=== PATIENT | female | born 1960 | race Caucasian/White ===

== ENCOUNTER 2017-02-10 12:10 | Inpatient (IN) | payer MEDICARE ==
[2017-02-10] VITALS (8 sets, daily range): BP systolic 113–168; BP diastolic 61–87
[~2017-02-10] VITALS: Ht 160 cm; Wt 71.3 kg
--- NOTE | ~2017-02-10 | ST ---
[place], [place] EXERCISE STRESS TEST REPORT [id number] UN[facility] #: [id number] ROOM: 412 DOCTOR: JUAN COLEY MD BIRTHDATE: [birth year] DATE: 02/11/17 STRESS TEST REASON FOR TEST: Evaluation of chest pain. REFERRING PHYSICIAN: Charlie Barroso MD PROTOCOL: Cristi protocol. Initially Cristi protocol was attempted due to patient's submaximal heart rate. She received 0.4 mg Lexiscan. PHYSICAL EXAMINATION: NECK: Supple. LUNGS: Clear anteriorly. HEART: Regular rhythm. Total stress time 6 minutes 15 seconds. Maximum heart was 118, which is 72% of targeted heart rate. Peak blood pressure 140/76 and total mets 7.4 mets. EKG: Resting EKG showed sinus rhythm. Stress EKG showed no ischemia or arrhythmias. CONCLUSION: Clinically, the patient is chest pain free. EKG nonischemic. POST-STRESS COMPLICATIONS: None. JUAN COLEY MD CM:STRESS:EXERCISE STRESS TEST REPORT [id number] JUAN COLEY MD
--- NOTE | ~2017-02-10 | PR ---
[place], [place] PROGRESS NOTE NAME: CARMELA SOLIS UNIT #: [id number] ROOM: 412 DOCTOR: JUAN COLEY MD BIRTHDATE: [birth year] DOS: 02/11/2017 REASON FOR VISIT: Chest pain. SUBJECTIVE: The patient denies any chest pain, denies any palpitations or dizziness. No edema, no orthopnea, no palpitations. No nausea, vomiting, diarrhea, no fever and chills, no headache, no blurred vision or double vision. No neurologic symptoms. REVIEW OF SYSTEMS: Review of the 8 systems negative except as mentioned above. PHYSICAL EXAMINATION: VITAL SIGNS: Blood pressure /70, pulse 58, respiratory rate 16. GENERAL: Alert, comfortable, in no acute distress. HEENT: Pupils round, equal. No jaundice. NECK: Supple and no distended neck veins, no carotid bruit. Tongue was moist and pharynx was clear. CHEST: Symmetrical, nontender. LUNGS: Clear to auscultation bilaterally. HEART: Regular rhythm, no S3. ABDOMEN: Benign, nontender. Bowel sounds normal. EXTREMITIES: Showed no edema. Distal pulses are palpable. SKIN: Warm and dry. No cyanosis, no clubbing. NEUROLOGIC: The patient was alert, oriented. No focal neurologic deficit. RECTAL: Deferred. GENITOURINARY: Deferred. REVIEW OF DIAGNOSTIC TEST: Labs and rhythm strips reviewed. IMPRESSION: 1. Chest pain, myocardial infarction ruled out. 2. Sinus bradycardia, asymptomatic. 3. Hypertension, stable. 4. Diabetes, type 2. 5. Dyslipidemia. RECOMMENDATIONS: 1. Continue current medications. 2. Continue to watch her heart rate and blood pressures. 3. Exercise nuclear stress test today to rule out underlying ischemia. 4. If the stress test is unremarkable, she can be discharged home today. [place], [place] PROGRESS NOTE NAME: CARMELA SOLIS UNIT #: [id number] ROOM: 412 DOCTOR: JUAN COLEY MD BIRTHDATE: [birth year] JUAN COLEY MD CM:PRISCILLA [id number] JUAN COLEY MD 02/12/17 0257 interface
--- NOTE | ~2017-02-10 | WRIGHTHP ---
[place], [place] PATIENT HISTORY AND PHYSICAL EXAM NAME: CARMELA SOLIS [facility] #: [id number] UNIT #: [id number] ROOM: 412 DOCTOR: PER TRONCOSO MD BIRTHDATE: [birth year] DOS: 02/11/2017 HISTORY OF PRESENT ILLNESS: The patient is doing well. She is chest pain free now. The patient presented with complaints of back and later on chest pain radiating into her left arm, which were severe and she called an ambulance and was brought to the Emergency Department. The patient was admitted and cardiac enzymes were found to be negative. The patient was taken for cardiac stress test by the mud analysis operator and the stress test was found to be negative. The patient has been cleared for discharge to home and she is asymptomatic. Some concerns about a stroke. According to the daughter, the patient has been having occasional slurring of the speech and noticed a possible droop of the left eye which has resolved. The patient already had carotid arterial Dopplers performed as an outpatient in recent months, which did not show any critical stenosis. 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 PAST MEDICAL HISTORY: Fibromyalgia, ankylosing spondylitis, generalized anxiety disorder, chronic lower back pains, and major depression, recurrent, minor controlled with fluoxetine. REVIEW OF SYSTEMS: LUNGS: No shortness of breath or wheezing. GASTROINTESTINAL: No nausea, vomiting, diarrhea or constipation. CARDIOVASCULAR SYSTEM: No palpitation, but the patient did have chest pains prior to admission. FAMILY HISTORY: Noncontributory. SOCIAL HISTORY: , lives at home. Denies smoking cigarettes, alcohol and drug abuse. ALLERGIES: KNOWN ALLERGIES TO QUINOLONES, TRAMADOL AND LYRICA. PHYSICAL EXAMINATION: VITAL SIGNS: Blood pressure 119/66, heart rate 69 beats per minute, breathing 18 times per minute, temperature 98.3 degrees Fahrenheit. GENERAL APPEARANCE: The patient is alert and oriented x 3, in no visible distress. HEENT AND NECK: Extraocular movements are intact. Sclerae are anicteric. Oral mucosa is moist and clean. No obvious facial weakness. Neck is supple without any lymphadenopathy. No thyromegaly. No JVD. No carotid arterial bruits. LUNGS: Clear to auscultation. No wheezing. No rhonchi. CARDIOVASCULAR SYSTEM: Heart rate is regular in rate and rhythm. S1 and S2 normally audible. No significant murmur or any other abnormal cardiac sounds. ABDOMEN: Soft, nontender. No obvious organomegaly. Bowel sounds are present. No obvious herniation. EXTREMITIES: Without significant cyanosis or edema. Warm to touch. CENTRAL NERVOUS SYSTEM: Alert and oriented x 3. Cranial nerves II-XII are intact. Speech is normal. The patient is able to move all extremities. Normal muscle strength. Deep tendon reflexes are equal on both sides. Plantars were [place], [place] PATIENT HISTORY AND PHYSICAL EXAM [id number] UNIT #: [id number] ROOM: [facility] DOCTOR: PER TRONCOSO MD BIRTHDATE: [birth year] downgoing. IMPRESSION: 1. The patient with chest pains from uncertain etiology. Cardiac enzymes were negative. Cardiac stress test was negative and was normal and she will be sent to home after clearance from Cardiology today and she will follow up with me in the office next week, Wednesday. 2. Some suspicion of transient ischemic attack, but carotid arterial Dopplers performed recently was normal. I am starting on aspirin 81 mg a day, which she will continue at home. Her neurological exam was normal today. 3. The patient with ankylosing spondylitis with chronic neck and lower back pains controlled with fentanyl patch and p.r.n. Vicodin. 4. Generalized anxiety disorder, reasonably controlled. 5. Fibromyalgia and chronic pains controlled with treatment. 6. The patient to be discharged to home to follow up at the office on Wednesday. PER TRONCOSO MD CM:HISPHYS:PATIENT HISTORY AND PHYSICAL EXAMINATION 32 12 PER TRONCOSO MD 02/11/171913 interface
[~2017-02-10 12:10] MED LIST: ANAPROX DS550 MG PO; ASCRIPTIN1 TA1 PO; ASPIRIN81 M1 PO; ATIVAN0.5 MG PO; AUGMENTIN 875 M1 TAB PO; B COMPLEX PO; BACTRIM DS 8001 TA1 PO; BACTROBAN CREAM15 GM PO; BIAXIN500 MG PO; CLARITIN-D 12 H1 TAB PO; CLARITIN10 MG PO; COMPAZINE10 MG PO; DARVOCET N 1001 TAB PO; DURAGESIC 50 M50 MCG TD; DURAGESIC25 MCG/HR TD; Duragesic 25 M25 MCG TD; EFFEXOR75 MG PO; FLEXERIL10 MG PO; FLONASE ALLERG9.9 ML NAS; KEFLEX500 MG PO; LOPRESSOR25 MG PO; Lopressor25 MG PO; MACROBID100 M1 PO; NEURONTIN600 MG PO; PERCOCET 325 MG1 TA5 PO; PREDNISONE10 MG PO; PYRIDIUM200 M1 PO; PYRIDIUM200 MG PO; ROBITUSSIN AC 110 ML PO; Synthroid,Levo50 MCG PO; TORADOL10 MG PO; TRAMADOL HCL50 MG PO; VIBRAMYCIN100 MG PO; VICO75300 PO; VICODIN 5/500 505 MG PO; VICODIN 500 MG-1 TAB PO; VICODIN ES 7501 TA1 PO; VITAMIN B12500 MC1 MM; VITAMIN D2000 IU PO; VITAMIN D5000 I3 PO; ZITHROMAX250 MG PO; [UNRECOGNIZED DRUG - OTHER] IJ; [UNRECOGNIZED DRUG - OTHER] PO
[2017-02-10] MEDS ORDERED: PROZAC40 M1 PO (12:19)
[2017-02-10 12:51] LABS: BASO # 0.1 10*3/uL (0.0-0.1); BASO % 0.9 % (0.0-1.0); EOS # 0.1 10*3/uL (0.0-0.4); EOS % 1.8 % (1.0-4.0); HEMATOCRIT 39.5 % (37.0-47.0); HEMOGLOBIN 13.5 g/dl (12.0-16.0); LYMPH % 34.8 % (27.0-41.0); MEAN CELL VOLUME 84.9 fl (81.0-99.0); MEAN CORPUSCULAR HGB CONC 34.2 g/dl (33.0-37.0); MEAN PLATELET VOLUME 9.3 fl (9.6-12.3); MONO # 0.5 10*3/uL (0.1-1.0); MONO % 8.4 % (3.0-9.0); NEUT % 53.4 % (47.0-73.0); PLATELET COUNT AUTOMATED 266 10*3/uL (130-400); RED BLOOD COUNT 4.65 10*6/uL (4.10-5.10); RED CELL DISTRI WIDTH 12.2 % (0-14.5); WHITE BLOOD COUNT 5.6 10*3/uL (4.8-10.8)
[2017-02-10 12:59] LABS: PROTHROMBIN TIME 10.3 SECONDS (9.0-12.4)
[2017-02-10 13:09] LABS: ALBUMIN 3.9 gm/dl (3.1-4.5); ALKALINE PHOSPHATASE 79 U/L (45-117); BILIRUBIN, TOTAL 0.2 mg/dl (0.2-1.0); BUN 10 mg/dl (7-24); CARBON DIOXIDE 27 mmol/L (21-32); CHLORIDE 103 mmol/L (98-107); EST GLOM FILT AFRICAN AMERICAN > 60 ml/min; GLUCOSE 111 mg/dL (65-99); POTASSIUM 3.7 mmol/L (3.5-5.1); SGOT/AST 23 IU/L (3-35); SGPT/ALT 29 U/L (12-78); SODIUM 141 mmol/L (136-145); TOTAL PROTEIN 7.5 gm/dL (6.4-8.2)
[2017-02-10 13:13] LABS: TROPONIN I < 0.015 ng/ml (<0.045)
[2017-02-11] VITALS: BP 117/61
[2017-02-11 08:00] VITALS: BP 122/70
[2017-02-11 16:00] VITALS: BP 119/66
== END 2017-02-11 19:05 | disposition home or self-care (01) | DRG 206 ==
LOC: ED 12:10 → 4E 14:09 → EDHOLD 14:09 → 4E 14:23
PROVIDERS: Emergency Medicine
DX: M94.0 Chondrocostal junction syndrome [Tietze] (principal); E11.40 Type 2 diabetes mellitus with diabetic neuropathy, unspecified; E11.65 Type 2 diabetes mellitus with hyperglycemia; F41.1 Generalized anxiety disorder; G89.29 Other chronic pain; M54.5 Low back pain; F32.9 Major depressive disorder, single episode, unspecified; M79.7 Fibromyalgia; M45.9 Ankylosing spondylitis of unspecified sites in spine; Z88.1 Allergy status to other antibiotic agents; Z88.6 Allergy status to analgesic agent; Z91.018 Allergy to other foods; Z87.891 Personal history of nicotine dependence; R00.1 Bradycardia, unspecified; E78.5 Hyperlipidemia, unspecified

== ENCOUNTER 2017-04-22 16:50 | Emergency (ER) | payer MEDICARE ==
[~2017-04-22] VITALS: Ht 160 cm; Wt 70.3 kg
[~2017-04-22 16:50] MED LIST changes: +PROZAC40 M1 PO
[2017-04-22 16:57] VITALS: BP 150/70
[2017-04-22 17:32] LABS: BASO # 0.1 10*3/uL (0.0-0.1); BASO % 0.7 % (0.0-1.0); EOS # 0.2 10*3/uL (0.0-0.4); EOS % 2.1 % (1.0-4.0); HEMOGLOBIN 13.4 g/dl (12.0-16.0); LYMPH # 2.4 10*3/uL (1.3-4.4); LYMPH % 33.6 % (27.0-41.0); MEAN CELL VOLUME 86.2 fl (81.0-99.0); MEAN CORPUSCULAR HGB 28.9 pg (27.0-31.0); MEAN CORPUSCULAR HGB CONC 33.5 g/dl (33.0-37.0); MEAN PLATELET VOLUME 9.3 fl (9.6-12.3); MONO # 0.7 10*3/uL (0.1-1.0); MONO % 9.7 % (3.0-9.0); NEUT # 3.7 10*3/uL (2.3-7.9); NEUT % 53.3 % (47.0-73.0); PLATELET COUNT AUTOMATED 275 10*3/uL (130-400); RED BLOOD COUNT 4.64 10*6/uL (4.10-5.10); RED CELL DISTRI WIDTH 12.4 % (0-14.5)
[2017-04-22 17:37] LABS: BILIRUBIN NEGATIVE (NEGATIVE); BLOOD NEGATIVE (NEGATIVE); CLARITY SL CLOUDY (CLEAR); COLOR YELLOW (YELLOW); GLUCOSE NEGATIVE (NEGATIVE); KETONE NEGATIVE (NEGATIVE); LEUKO ESTERASE TRACE (NEGATIVE); NITRITE NEGATIVE (NEGATIVE); PROTEIN NEGATIVE (NEGATIVE); UROBILINOGEN 0.2 E.U./dl (0.2-1.0)
[2017-04-22 17:43] LABS: BACTERIA 2+; RBC 0-2 rbc/hpf (0-2); URINE REFLEX COMMENT YES (NO)
[2017-04-22 17:48] LABS: BUN 12 mg/dl (7-24); CARBON DIOXIDE 29 mmol/L (21-32); CHLORIDE 104 mmol/L (98-107); EST GLOM FILT AFRICAN AMERICAN > 60 ml/min; GLUCOSE 87 mg/dL (65-99); POTASSIUM 4.2 mmol/L (3.5-5.1); SODIUM 143 mmol/L (136-145); TROPONIN I < 0.015 ng/ml (<0.045)
[2017-04-22] MEDS ORDERED: BACTRIM DS 8001 TA1 PO (18:33)
== END 2017-04-22 18:34 | disposition home or self-care (01) ==
LOC: ED 16:50
PROVIDERS: Emergency Medicine
DX: R42 Dizziness and giddiness (principal); J01.90 Acute sinusitis, unspecified; N39.0 Urinary tract infection, site not specified; I10 Essential (primary) hypertension; E78.5 Hyperlipidemia, unspecified; E11.9 Type 2 diabetes mellitus without complications; Z87.891 Personal history of nicotine dependence; Z90.49 Acquired absence of other specified parts of digestive tract; Z88.1 Allergy status to other antibiotic agents; Z88.6 Allergy status to analgesic agent; Z88.8 Allergy status to other drugs, medicaments and biological substances; Z79.899 Other long term (current) drug therapy

== ENCOUNTER 2017-05-10 09:02 | Emergency (ER) | payer MEDICARE ==
[~2017-05-10] VITALS: Ht 157.4 cm; Wt 70.3 kg
[2017-05-10] MEDS ORDERED: XANAX0.25 MG PO (09:09)
[2017-05-10 09:29] LABS: BASO % 0.3 % (0.0-1.0); EOS # 0.1 10*3/uL (0.0-0.4); EOS % 1.8 % (1.0-4.0); HEMATOCRIT 40.6 % (37.0-47.0); HEMOGLOBIN 13.5 g/dl (12.0-16.0); LYMPH # 1.2 10*3/uL (1.3-4.4); LYMPH % 20.3 % (27.0-41.0); MEAN CELL VOLUME 86.8 fl (81.0-99.0); MEAN CORPUSCULAR HGB 28.8 pg (27.0-31.0); MEAN CORPUSCULAR HGB CONC 33.3 g/dl (33.0-37.0); MEAN PLATELET VOLUME 9.1 fl (9.6-12.3); MONO # 0.4 10*3/uL (0.1-1.0); MONO % 6.8 % (3.0-9.0); NEUT # 4.3 10*3/uL (2.3-7.9); NEUT % 70.3 % (47.0-73.0); PLATELET COUNT AUTOMATED 255 10*3/uL (130-400); RED BLOOD COUNT 4.68 10*6/uL (4.10-5.10); RED CELL DISTRI WIDTH 12.4 % (0-14.5); WHITE BLOOD COUNT 6.1 10*3/uL (4.8-10.8)
[2017-05-10 09:44] LABS: BILIRUBIN NEGATIVE (NEGATIVE); BLOOD NEGATIVE (NEGATIVE); CLARITY SL CLOUDY (CLEAR); COLOR YELLOW (YELLOW); GLUCOSE NEGATIVE (NEGATIVE); KETONE NEGATIVE (NEGATIVE); LEUKO ESTERASE NEGATIVE (NEGATIVE); NITRITE NEGATIVE (NEGATIVE); PH 5.5 (5.0-9.0); PROTEIN NEGATIVE (NEGATIVE); SPECIFIC GRAVITY 1.025 (1.005-1.030); UROBILINOGEN 0.2 E.U./dl (0.2-1.0)
[2017-05-10 09:48] LABS: ALBUMIN 3.9 gm/dl (3.1-4.5); ALKALINE PHOSPHATASE 64 U/L (45-117); BILIRUBIN, TOTAL 0.3 mg/dl (0.2-1.0); BUN 12 mg/dl (7-24); CARBON DIOXIDE 30 mmol/L (21-32); CHLORIDE 101 mmol/L (98-107); EST GLOM FILT AFRICAN AMERICAN > 60 ml/min; GLUCOSE 125 mg/dL (65-99); POTASSIUM 3.9 mmol/L (3.5-5.1); SGOT/AST 20 IU/L (3-35); SGPT/ALT 26 U/L (12-78); SODIUM 138 mmol/L (136-145); TOTAL PROTEIN 7.4 gm/dL (6.4-8.2)
[2017-05-10 09:59] LABS: BACTERIA TRACE
[2017-05-10 10:00] LABS: MUCOUS 1+; URINE REFLEX COMMENT NO (NO)
[2017-05-10 11:21] VITALS: BP 136/70
[2017-05-10] MEDS ORDERED: MIRALAX POWDER17 G1 PO (11:31)
== END 2017-05-10 10:38 | disposition home or self-care (01) ==
LOC: ED 09:02
PROVIDERS: Nurse Practitioner Family
DX: K59.03 Drug induced constipation (principal); I10 Essential (primary) hypertension; R10.10 Upper abdominal pain, unspecified; R11.0 Nausea; E11.40 Type 2 diabetes mellitus with diabetic neuropathy, unspecified; E78.5 Hyperlipidemia, unspecified; Z88.1 Allergy status to other antibiotic agents; Z88.6 Allergy status to analgesic agent; Z88.8 Allergy status to other drugs, medicaments and biological substances; Z91.018 Allergy to other foods; Z79.899 Other long term (current) drug therapy; Z87.891 Personal history of nicotine dependence

== ENCOUNTER → 2017-11-15 | Outpatient (CLI) | payer MEDICARE, MEDICAID ==
[~2017-11-15] MED LIST changes: +FLAGYL500 MG PO; +MIRALAX POWDER17 G1 PO; +XANAX0.25 MG PO
== END | disposition home or self-care (01) ==
LOC: MRI 08:58
DX: M54.9 Dorsalgia, unspecified (principal)

== ENCOUNTER → 2018-01-26 | Day surgery (SDC) | payer MEDICARE, MEDICAID ==
[~2018-01-26] VITALS: Ht 157.4 cm; Wt 76.2 kg
[~2018-01-26] MED LIST changes: +OMEPRAZOLE D/R20 MG PO
--- NOTE | ~2018-01-26 | O ---
[place], [place] OPERATIVE NOTE NAME: CARMELA SOLIS [facility] #: [id number] UNIT #: [id number] ROOM: DOCTOR: CARYN PAT MD BIRTHDATE: [birth year] DOS: 01/26/2018 GASTROENDOSCOPIC REPORT INDICATIONS: This is a 57-year-old patient who has presented with dyspepsia, undergoing investigation. PROCEDURE: Today's procedure part of investigation is panendoscopy plus biopsy. PREMEDICATION: Versed and Diprivan. SCOPE: Olympus forward-viewing gastroscope Q10 video. REPORT: After putting the patient in left lateral position and application of lubricant to the scope, the scope was introduced. Thereafter, under direct visualization, advanced through the length of esophagus without difficulty. Small hiatal hernia of 2 cm was noticed. Gastric pouch was entered. Bile reflux gastritis was seen. Duodenal bulb, second and third part within normal limits. Antral biopsy obtained for H. pylori. The patient extubated, tolerated the procedure well. IMPRESSION: Hiatal hernia, bile reflux, gastritis. PLAN: Omeprazole 20 mg 1 every day, antireflux, elevation of the head of the bed 6 inch all time. Follow up routinely with you in office, p.r.n. visit with us in GI Clinic. CARYN PAT MD CM:OPRECORD:OPERATIVE NOTE [id number] PER PAT MD 01/26/18 0950 interface
--- NOTE | ~2018-01-26 | O ---
[place], [place] OPERATIVE NOTE NAME: CARMELA SOLIS UNIT #: [id number] ROOM: DOCTOR: CARYN PAT MD BIRTHDATE: [birth year] DOS: 01/26/2018 GASTROENDOSCOPIC REPORT HISTORY OF PRESENT ILLNESS: A 57-year-old patient who presented with chief complaint of dyspepsia and concern about colonic screening, undergoing investigation. PAST MEDICAL HISTORY: Associated with history of degenerative joint disease, spinal stenosis, diabetes, peripheral neuropathy. PAST SURGICAL HISTORY: Cholecystectomy, appendectomy, tubal ligation, dental work. ALLERGIES: CIPROFLOXACIN AND PREDNISONE AND ALLERGIES TO MULTIPLE FOODS INCLUDING TOMATOES AND CHERRIES. SOCIAL HISTORY: Stopped smoking 15 years ago. Alcohol consumption rarely. PROCEDURE: Today's procedure part of investigation is colonoscopy, panendoscopy. PREMEDICATION: Versed and Diprivan. SCOPE: Olympus folding colonoscope 10L video. REPORT: After putting the patient in left lateral position and application of lubricant to rectal pouch and digital examination, scope was introduced; thereafter, under direct visualization, advanced through the length of colon without difficulty. Polypoid lesions at the base of the cecum with snare polypectomy. Sample was recovered as well as another small polypoid lesion with biopsy forceps was eradicated. Scope was withdrawn back to the sigmoid colon, a sessile polypoid lesion with piecemeal polypectomy removed. Base of cecum was photographed. Diverticulosis noticed. The patient was extubated, tolerated the procedure well. IMPRESSION: Cecal polyp, status post snare polypectomy. Sessile polyp at sigmoid colon, status post piecemeal polypectomy, diverticulosis. PLAN AND DISCUSSION: We are going to proceed with panendoscopy. [place], [place] OPERATIVE NOTE NAME: CARMELA SOLIS UNIT #: [id number] ROOM: DOCTOR: CARYN PAT MD BIRTHDATE: [birth year] CARYN PAT MD CM:OPRECORD:OPERATIVE NOTE 4 6 CARYN PAT MD 01/26/18946 interface
[2018-01-26 08:04] VITALS: BP 143/55
[2018-01-26 09:00] VITALS: BP 131/67
[2018-01-26 09:15] VITALS: BP 128/66
[2018-01-26 09:29] VITALS: BP 122/60
== END | disposition home or self-care (01) ==
LOC: SDC 01-20 08:45
DX: Z12.11 Encounter for screening for malignant neoplasm of colon (principal); K29.50 Unspecified chronic gastritis without bleeding; K57.30 Diverticulosis of large intestine without perforation or abscess without bleeding; D12.0 Benign neoplasm of cecum; K62.1 Rectal polyp; K21.9 Gastro-esophageal reflux disease without esophagitis; K44.9 Diaphragmatic hernia without obstruction or gangrene; E11.40 Type 2 diabetes mellitus with diabetic neuropathy, unspecified; Z90.49 Acquired absence of other specified parts of digestive tract; Z98.51 Tubal ligation status; Z88.8 Allergy status to other drugs, medicaments and biological substances; Z91.018 Allergy to other foods; Z87.891 Personal history of nicotine dependence; I10 Essential (primary) hypertension; E07.89 Other specified disorders of thyroid; F41.0 Panic disorder [episodic paroxysmal anxiety]; Z98.890 Other specified postprocedural states; Z83.3 Family history of diabetes mellitus; Z82.49 Family history of ischemic heart disease and other diseases of the circulatory system

== ENCOUNTER 2018-11-03 12:37 | Emergency (ER) | payer MEDICARE ==
[~2018-11-03] VITALS: Ht 160 cm; Wt 76.2 kg
[2018-11-03 12:40] VITALS: BP 171/76
[2018-11-03] MEDS ORDERED: ATORVASTATIN CA40 M1 PO (12:55)
[2018-11-03] MEDS ORDERED: VITAMIN D32000 UNI1 PO (12:56)
[2018-11-03 13:08] LABS: BASO % 0.5 % (0.0-1.0); EOS # 0.1 10*3/uL (0.0-0.4); EOS % 1.5 % (1.0-4.0); HEMOGLOBIN 14.3 g/dl (12.0-16.0); LYMPH # 1.8 10*3/uL (1.3-4.4); LYMPH % 28.1 % (27.0-41.0); MEAN CELL VOLUME 85.3 fl (81.0-99.0); MEAN CORPUSCULAR HGB 28.4 pg (27.0-31.0); MEAN CORPUSCULAR HGB CONC 33.3 g/dl (33.0-37.0); MEAN PLATELET VOLUME 9.4 fl (9.6-12.3); MONO # 0.6 10*3/uL (0.1-1.0); MONO % 9.3 % (3.0-9.0); NEUT # 3.9 10*3/uL (2.3-7.9); NEUT % 60.1 % (47.0-73.0); PLATELET COUNT AUTOMATED 299 10*3/uL (130-400); RED BLOOD COUNT 5.04 10*6/uL (4.10-5.10); RED CELL DISTRI WIDTH 12.4 % (0-14.5); WHITE BLOOD COUNT 6.5 10*3/uL (4.8-10.8)
[2018-11-03 13:23] LABS: ALBUMIN 4.2 gm/dl (3.1-4.5); ALKALINE PHOSPHATASE 83 U/L (45-117); BUN 12 mg/dl (7-24); CHLORIDE 103 mmol/L (98-107); POTASSIUM 3.9 mmol/L (3.5-5.1); SGOT/AST 20 IU/L (3-35); SGPT/ALT 36 U/L (12-78); SODIUM 139 mmol/L (136-145); TOTAL PROTEIN 7.9 gm/dL (6.4-8.2)
[2018-11-03 14:48] LABS: BILIRUBIN NEGATIVE (NEGATIVE); BLOOD NEGATIVE (NEGATIVE); CLARITY SL CLOUDY (CLEAR); COLOR YELLOW (YELLOW); GLUCOSE NEGATIVE (NEGATIVE); KETONE NEGATIVE (NEGATIVE); LEUKO ESTERASE NEGATIVE (NEGATIVE); NITRITE NEGATIVE (NEGATIVE); SPECIFIC GRAVITY >= 1.030 (1.005-1.030)
[2018-11-03 15:02] LABS: BACTERIA 1+
== END 2018-11-03 15:26 | disposition home or self-care (01) ==
LOC: ED 12:37
PROVIDERS: Emergency Medicine
DX: S86.911A Strain of unspecified muscle(s) and tendon(s) at lower leg level, right leg, initial encounter (principal); B34.9 Viral infection, unspecified; Z91.018 Allergy to other foods; Z88.8 Allergy status to other drugs, medicaments and biological substances; Z88.1 Allergy status to other antibiotic agents; Z88.6 Allergy status to analgesic agent; Z79.899 Other long term (current) drug therapy; Z90.49 Acquired absence of other specified parts of digestive tract; Z87.891 Personal history of nicotine dependence; X58.XXXA Exposure to other specified factors, initial encounter; Y93.89 Activity, other specified; Y92.89 Other specified places as the place of occurrence of the external cause; Y99.8 Other external cause status

== ENCOUNTER 2018-12-27 14:35 | Emergency (ER) | payer MEDICARE ==
[~2018-12-27] VITALS: Ht 157.4 cm; Wt 75.7 kg
[~2018-12-27 14:35] MED LIST changes: +ATORVASTATIN CA40 M1 PO; +VITAMIN D32000 UNI1 PO
[2018-12-27 14:37] VITALS: BP 156/65
[2018-12-27] MEDS ORDERED: Motrin,Rufen800 MG PO (16:26)
== END 2018-12-27 17:26 | disposition home or self-care (01) ==
LOC: ED 14:35
DX: S52.125A Nondisplaced fracture of head of left radius, initial encounter for closed fracture (principal); S62.115A Nondisplaced fracture of triquetrum [cuneiform] bone, left wrist, initial encounter for closed fracture; S80.212A Abrasion, left knee, initial encounter; Z91.018 Allergy to other foods; Z88.8 Allergy status to other drugs, medicaments and biological substances; Z88.1 Allergy status to other antibiotic agents; Z79.899 Other long term (current) drug therapy; Z90.49 Acquired absence of other specified parts of digestive tract; Z87.891 Personal history of nicotine dependence; W18.09XA Striking against other object with subsequent fall, initial encounter; Y93.89 Activity, other specified; Y92.89 Other specified places as the place of occurrence of the external cause; Y99.8 Other external cause status

== ENCOUNTER 2019-01-05 15:10 | Emergency (ER) | payer MEDICARE ==
[~2019-01-05] VITALS: Ht 157.4 cm; Wt 75.7 kg
[~2019-01-05 15:10] MED LIST changes: +Motrin,Rufen800 MG PO
[2019-01-05 15:13] VITALS: BP 131/78
[2019-01-05] MEDS ORDERED: TAMIFLU 75MG CA75 MG PO (17:50)
== END 2019-01-05 17:10 | disposition home or self-care (01) ==
LOC: ED 15:10
DX: J10.1 Influenza due to other identified influenza virus with other respiratory manifestations (principal); Z87.891 Personal history of nicotine dependence; Z90.49 Acquired absence of other specified parts of digestive tract; Z98.890 Other specified postprocedural states; Z79.899 Other long term (current) drug therapy; Z91.018 Allergy to other foods; Z88.1 Allergy status to other antibiotic agents; Z88.8 Allergy status to other drugs, medicaments and biological substances

== ENCOUNTER → 2019-06-30 | Outpatient (CLI) | payer MEDICARE ==
[~2019-06-30] MED LIST changes: +TAMIFLU 75MG CA75 MG PO
[2019-06-30 10:55] LABS: BASO # 0.1 10*3/uL (0.0-0.1); BASO % 0.9 % (0.0-1.0); EOS # 0.1 10*3/uL (0.0-0.4); EOS % 1.5 % (1.0-4.0); HEMATOCRIT 40.4 % (37.0-47.0); HEMOGLOBIN 13.3 g/dl (12.0-16.0); LYMPH # 1.4 10*3/uL (1.3-4.4); LYMPH % 25.3 % (27.0-41.0); MEAN CELL VOLUME 88.2 fl (81.0-99.0); MEAN CORPUSCULAR HGB CONC 32.9 g/dl (33.0-37.0); MEAN PLATELET VOLUME 9.8 fl (9.6-12.3); MONO # 0.5 10*3/uL (0.1-1.0); MONO % 9.5 % (3.0-9.0); NEUT # 3.4 10*3/uL (2.3-7.9); NEUT % 62.2 % (47.0-73.0); PLATELET COUNT AUTOMATED 287 10*3/uL (130-400); RED BLOOD COUNT 4.58 10*6/uL (4.10-5.10); RED CELL DISTRI WIDTH 12.4 % (0-14.5); WHITE BLOOD COUNT 5.4 10*3/uL (4.8-10.8)
[2019-06-30 11:23] LABS: ALBUMIN 3.7 gm/dl (3.1-4.5); BUN 8 mg/dl (7-24); CHLORIDE 106 mmol/L (98-107); CHOLESTEROL 235 mg/dL (<200); POTASSIUM 3.9 mmol/L (3.5-5.1); SGOT/AST 22 IU/L (3-35); SGPT/ALT 39 U/L (12-78); SODIUM 141 mmol/L (136-145); TOTAL PROTEIN 7.5 gm/dL (6.4-8.2); TRIGLYCERIDES 143 mg/dl (<150); VLDL CHOLESTEROL 29 mg/dL (6-40)
[2019-06-30 11:31] LABS: ALKALINE PHOSPHATASE 71 U/L (45-117); FREE T4 1.02 ng/dl (0.76-1.46); HDL CHOLESTEROL 48 mg/dl (40-60); LDL CHOLESTEROL 158 mg/dL (9-159)
[2019-06-30 11:37] LABS: VITAMIN D, 25-HYDROXY 24.2 ng/mL (30-100)
== END | disposition home or self-care (01) ==
LOC: LAB 10:08
PROVIDERS: Internal Medicine
DX: E55.9 Vitamin D deficiency, unspecified (principal); E78.2 Mixed hyperlipidemia; E03.9 Hypothyroidism, unspecified; I10 Essential (primary) hypertension

== ENCOUNTER → 2019-08-03 | Outpatient (CLI) | payer MEDICARE | END | disposition home or self-care (01) | LOC: RAD 16:38 | DX: M25.552 Pain in left hip (principal) ==

== ENCOUNTER → 2019-09-25 | Outpatient (CLI) | payer MEDICARE ==
[2019-09-25 13:42] LABS: CREATININE 0.76 mg/dL (0.55-1.02)
== END | disposition home or self-care (01) ==
LOC: LAB 12:59 → CT 13:00
PROVIDERS: Internal Medicine
DX: K76.0 Fatty (change of) liver, not elsewhere classified (principal); E11.9 Type 2 diabetes mellitus without complications; Z90.49 Acquired absence of other specified parts of digestive tract; Z90.89 Acquired absence of other organs

== ENCOUNTER → 2019-12-19 | Outpatient (CLI) | payer MEDICARE ==
[2019-12-19 11:33] LABS: BASO # 0.1 10*3/uL (0.0-0.1); BASO % 0.8 % (0.0-1.0); EOS # 0.1 10*3/uL (0.0-0.4); EOS % 1.3 % (1.0-4.0); HEMATOCRIT 41.9 % (37.0-47.0); HEMOGLOBIN 13.9 g/dl (12.0-16.0); LYMPH % 33.4 % (27.0-41.0); MEAN CELL VOLUME 85.3 fl (81.0-99.0); MEAN CORPUSCULAR HGB 28.3 pg (27.0-31.0); MEAN CORPUSCULAR HGB CONC 33.2 g/dl (33.0-37.0); MEAN PLATELET VOLUME 9.6 fl (9.6-12.3); MONO # 0.6 10*3/uL (0.1-1.0); MONO % 10.3 % (3.0-9.0); NEUT # 3.3 10*3/uL (2.3-7.9); NEUT % 53.5 % (47.0-73.0); PLATELET COUNT AUTOMATED 279 10*3/uL (130-400); RED BLOOD COUNT 4.91 10*6/uL (4.10-5.10); RED CELL DISTRI WIDTH 12.5 % (0-14.5); WHITE BLOOD COUNT 6.1 10*3/uL (4.8-10.8)
[2019-12-19 12:06] LABS: CHLORIDE 106 mmol/L (98-107); POTASSIUM 3.7 mmol/L (3.5-5.1); SODIUM 140 mmol/L (136-145)
[2019-12-19 12:24] LABS: ALKALINE PHOSPHATASE 75 U/L (45-117); BUN 7 mg/dl (7-24); CHOLESTEROL 224 mg/dL (<200); CREATININE 0.73 mg/dL (0.55-1.02); HDL CHOLESTEROL 43 mg/dl (40-60); LDL CHOLESTEROL 140 mg/dL (9-159); SGOT/AST 22 IU/L (3-35); SGPT/ALT 45 U/L (12-78); TOTAL PROTEIN 7.7 gm/dL (6.4-8.2); TRIGLYCERIDES 205 mg/dl (<150); VLDL CHOLESTEROL 41 mg/dL (6-40)
[2019-12-19 12:31] LABS: VITAMIN D, 25-HYDROXY 27.5 ng/mL (30-100)
== END | disposition home or self-care (01) ==
LOC: LAB 10:51
PROVIDERS: Internal Medicine
DX: I10 Essential (primary) hypertension (principal); E03.9 Hypothyroidism, unspecified; E78.5 Hyperlipidemia, unspecified; E55.9 Vitamin D deficiency, unspecified

== ENCOUNTER → 2020-10-07 | Outpatient (CLI) | payer MEDICARE | END | disposition home or self-care (01) | LOC: COVID19 13:40 | PROVIDERS: ATTEND Internal Medicine | DX: U07.1 COVID-19 (principal) ==

== ENCOUNTER 2021-05-08 14:24 | Emergency (ER) | payer MEDICARE ==
[~2021-05-08] VITALS: Ht 158.7 cm; Wt 77.1 kg
[2021-05-08 14:32] VITALS: BP 149/89
[2021-05-08] MEDS ORDERED: DOXYCYCLINE100 M3 PO (15:46)
[2021-05-08] MEDS ORDERED: IBUPROFEN600 MG PO (15:46)
== END 2021-05-08 17:22 | disposition home or self-care (01) ==
LOC: ED 14:24
DX: N61.1 Abscess of the breast and nipple (principal); Z87.891 Personal history of nicotine dependence; Z90.49 Acquired absence of other specified parts of digestive tract; Z79.899 Other long term (current) drug therapy; Z88.1 Allergy status to other antibiotic agents; Z88.8 Allergy status to other drugs, medicaments and biological substances

== ENCOUNTER 2021-08-29 10:19 | Emergency (ER) | payer MEDICARE ==
[~2021-08-29] VITALS: Ht 157.4 cm; Wt 78.5 kg
[~2021-08-29 10:19] MED LIST changes: +DOXYCYCLINE100 M3 PO; +IBUPROFEN600 MG PO
[2021-08-29 10:26] VITALS: BP 142/72
[2021-08-30] MEDS ORDERED: NEURONTIN800 MG PO (17:18)
[2021-08-30] MEDS ORDERED: GLUMETZA500 MG PO (17:19)
== END 2021-08-29 11:18 | disposition home or self-care (01) ==
LOC: ED 10:19
DX: M79.661 Pain in right lower leg (principal); E78.5 Hyperlipidemia, unspecified; I10 Essential (primary) hypertension; E11.9 Type 2 diabetes mellitus without complications; Z88.1 Allergy status to other antibiotic agents; Z88.8 Allergy status to other drugs, medicaments and biological substances; Z79.899 Other long term (current) drug therapy; Z87.891 Personal history of nicotine dependence

== ENCOUNTER 2021-08-30 17:02 | Emergency (ER) | payer MEDICARE ==
[~2021-08-30] VITALS: Ht 157.4 cm; Wt 78.5 kg
[2021-08-30 17:06] VITALS: BP 140/71
[2021-08-30] MEDS ORDERED: NEURONTIN800 MG PO (17:18)
[2021-08-30] MEDS ORDERED: GLUMETZA500 MG PO (17:19)
[2021-08-30 17:31] LABS: BASO # 0.1 10*3/uL (0.0-0.1); BASO % 0.7 % (0.0-1.0); EOS # 0.1 10*3/uL (0.0-0.4); EOS % 1.5 % (1.0-4.0); LYMPH # 2.2 10*3/uL (1.3-4.4); LYMPH % 29.6 % (27.0-41.0); MEAN CELL VOLUME 81.7 fl (81.0-99.0); MEAN CORPUSCULAR HGB 28.1 pg (27.0-31.0); MEAN CORPUSCULAR HGB CONC 34.4 g/dl (33.0-37.0); MEAN PLATELET VOLUME 9.4 fl (9.6-12.3); MONO # 0.7 10*3/uL (0.1-1.0); MONO % 8.8 % (3.0-9.0); NEUT # 4.5 10*3/uL (2.3-7.9); PLATELET COUNT AUTOMATED 280 10*3/uL (130-400); RED BLOOD COUNT 5.02 10*6/uL (4.10-5.10); RED CELL DISTRI WIDTH 12.5 % (0-14.5); WHITE BLOOD COUNT 7.6 10*3/uL (4.8-10.8)
[2021-08-30 17:44] LABS: BUN 10 mg/dl (7-24); CHLORIDE 105 mmol/L (98-107); CREATININE 0.75 mg/dL (0.55-1.02); SODIUM 135 mmol/L (136-145)
== END 2021-08-30 19:51 | disposition home or self-care (01) ==
LOC: ED 17:02
PROVIDERS: Emergency Medicine
DX: M79.661 Pain in right lower leg (principal); E11.65 Type 2 diabetes mellitus with hyperglycemia; E78.5 Hyperlipidemia, unspecified; I10 Essential (primary) hypertension; E11.9 Type 2 diabetes mellitus without complications; Z79.899 Other long term (current) drug therapy; Z87.891 Personal history of nicotine dependence; Z88.1 Allergy status to other antibiotic agents; Z88.8 Allergy status to other drugs, medicaments and biological substances; Z91.018 Allergy to other foods

== ENCOUNTER → 2021-09-10 | Outpatient (CLI) | payer MEDICARE ==
[~2021-09-10] MED LIST changes: +GLUMETZA500 MG PO; +NEURONTIN800 MG PO
== END | disposition home or self-care (01) ==
LOC: MAMMO 09-03 09:00 → US 09-03 09:30 → MAMMO 09:00
PROVIDERS: ATTEND Nurse Practitioner Women's Health
DX: N64.4 Mastodynia (principal); N63.0 Unspecified lump in unspecified breast

== ENCOUNTER 2021-10-03 16:25 | Emergency (ER) | payer MEDICARE ==
[~2021-10-03] VITALS: Ht 157.4 cm; Wt 83.0 kg
[2021-10-03 16:28] VITALS: BP 188/74
[2021-10-03 16:58] LABS: BASO % 0.6 % (0.0-1.0); EOS # 0.1 10*3/uL (0.0-0.4); EOS % 1.6 % (1.0-4.0); HEMATOCRIT 40.4 % (37.0-47.0); LYMPH # 2.1 10*3/uL (1.3-4.4); LYMPH % 31.3 % (27.0-41.0); MEAN CELL VOLUME 82.6 fl (81.0-99.0); MEAN CORPUSCULAR HGB 27.6 pg (27.0-31.0); MEAN CORPUSCULAR HGB CONC 33.4 g/dl (33.0-37.0); MEAN PLATELET VOLUME 9.2 fl (9.6-12.3); MONO # 0.7 10*3/uL (0.1-1.0); MONO % 9.6 % (3.0-9.0); NEUT # 3.8 10*3/uL (2.3-7.9); NEUT % 56.5 % (47.0-73.0); PLATELET COUNT AUTOMATED 294 10*3/uL (130-400); RED BLOOD COUNT 4.89 10*6/uL (4.10-5.10); RED CELL DISTRI WIDTH 12.2 % (0-14.5); WHITE BLOOD COUNT 6.8 10*3/uL (4.8-10.8)
[2021-10-03 17:14] LABS: ALBUMIN 3.9 gm/dl (3.1-4.5); ALKALINE PHOSPHATASE 91 U/L (45-117); BUN 10 mg/dl (7-24); CHLORIDE 104 mmol/L (98-107); CREATININE 0.61 mg/dL (0.55-1.02); POTASSIUM 3.6 mmol/L (3.5-5.1); SGOT/AST 27 IU/L (3-35); SGPT/ALT 47 U/L (12-78); SODIUM 138 mmol/L (136-145); TOTAL PROTEIN 7.7 gm/dL (6.4-8.2)
[2021-10-03 17:44] LABS: BILIRUBIN Negative (Negative); BLOOD Negative (Negative); CLARITY Clear (Clear); COLOR Yellow (Yellow); GLUCOSE Negative (Negative); KETONE 1+ (Negative); LEUKO ESTERASE 2+ (Negative); NITRITE Negative (Negative); PH 7.5 (4.5-8.0); SPECIFIC GRAVITY 1.015 (1.001-1.030)
[2021-10-03 18:48] LABS: BACTERIA 2+
[2021-10-03] MEDS ORDERED: CEFUROXIME AXE500 MG PO (19:31)
== END 2021-10-03 19:54 | disposition home or self-care (01) ==
LOC: ED 16:25
PROVIDERS: Physician Assistant
DX: N39.0 Urinary tract infection, site not specified (principal); Z91.018 Allergy to other foods; Z88.1 Allergy status to other antibiotic agents; Z88.8 Allergy status to other drugs, medicaments and biological substances; Z79.899 Other long term (current) drug therapy; Z87.891 Personal history of nicotine dependence

== ENCOUNTER 2022-04-13 17:07 | Emergency (ER) | payer MEDICARE ==
[~2022-04-13] VITALS: Ht 160 cm; Wt 75.7 kg
[~2022-04-13 17:07] MED LIST changes: +CEFUROXIME AXE500 MG PO
[2022-04-13 17:30] VITALS: BP 165/54
== END 2022-04-13 18:57 | disposition home or self-care (01) ==
LOC: ED 17:07
DX: L55.1 Sunburn of second degree (principal); Z88.1 Allergy status to other antibiotic agents; Z88.8 Allergy status to other drugs, medicaments and biological substances; Z90.49 Acquired absence of other specified parts of digestive tract; Z98.890 Other specified postprocedural states; Z87.891 Personal history of nicotine dependence

== ENCOUNTER 2022-06-03 16:49 | Emergency (ER) | payer MEDICARE ==
[~2022-06-03] VITALS: Ht 162.5 cm; Wt 72.6 kg
[2022-06-03 17:07] VITALS: BP 137/66
[2022-06-03 17:56] LABS: BILIRUBIN Negative (Negative); BLOOD Negative (Negative); CLARITY Clear (Clear); COLOR Yellow (Yellow); GLUCOSE Negative (Negative); KETONE Trace (Negative); LEUKO ESTERASE 1+ (Negative); NITRITE Negative (Negative); PH 5.5 (4.5-8.0)
[2022-06-03 18:02] LABS: BASO # 0.1 10*3/uL (0.0-0.1); BASO % 0.6 % (0.0-1.0); EOS # 0.1 10*3/uL (0.0-0.4); EOS % 1.2 % (1.0-4.0); HEMATOCRIT 42.2 % (37.0-47.0); LYMPH # 2.2 10*3/uL (1.3-4.4); LYMPH % 26.3 % (27.0-41.0); MEAN CELL VOLUME 83.1 fl (81.0-99.0); MEAN CORPUSCULAR HGB 27.8 pg (27.0-31.0); MEAN CORPUSCULAR HGB CONC 33.4 g/dl (33.0-37.0); MONO # 0.6 10*3/uL (0.1-1.0); MONO % 7.3 % (3.0-9.0); NEUT # 5.2 10*3/uL (2.3-7.9); NEUT % 63.9 % (47.0-73.0); PLATELET COUNT AUTOMATED 286 10*3/uL (130-400); RED BLOOD COUNT 5.08 10*6/uL (4.10-5.10); RED CELL DISTRI WIDTH 12.4 % (0-14.5); WHITE BLOOD COUNT 8.2 10*3/uL (4.8-10.8)
[2022-06-03 18:06] LABS: BACTERIA 1+; MUCOUS 2+
[2022-06-03 18:16] LABS: ALKALINE PHOSPHATASE 68 U/L (45-117); BUN 12 mg/dl (7-24); CHLORIDE 105 mmol/L (98-107); CREATININE 0.86 mg/dL (0.55-1.02); LIPASE 252 U/L (73-393); POTASSIUM 3.7 mmol/L (3.5-5.1); SGOT/AST 23 IU/L (3-35); SGPT/ALT 41 U/L (12-78); SODIUM 140 mmol/L (136-145); TOTAL PROTEIN 7.6 gm/dL (6.4-8.2)
== END 2022-06-03 21:08 | disposition left against medical advice (07) ==
LOC: ED 16:49
PROVIDERS: Physician Assistant
DX: R07.81 Pleurodynia (principal); Z91.018 Allergy to other foods; Z88.1 Allergy status to other antibiotic agents; Z88.8 Allergy status to other drugs, medicaments and biological substances; Z79.899 Other long term (current) drug therapy; Z90.49 Acquired absence of other specified parts of digestive tract; Z98.890 Other specified postprocedural states; Z87.891 Personal history of nicotine dependence

== ENCOUNTER → 2022-08-05 | Outpatient (CLI) | payer MEDICARE ==
[2022-08-05 09:42] LABS: BASO # 0.1 10*3/uL (0.0-0.1); BASO % 0.7 % (0.0-1.0); EOS # 0.1 10*3/uL (0.0-0.4); EOS % 0.9 % (1.0-4.0); LYMPH # 1.7 10*3/uL (1.3-4.4); LYMPH % 22.8 % (27.0-41.0); MEAN CELL VOLUME 86.1 fl (81.0-99.0); MEAN CORPUSCULAR HGB 28.6 pg (27.0-31.0); MEAN CORPUSCULAR HGB CONC 33.2 g/dl (33.0-37.0); MEAN PLATELET VOLUME 9.1 fl (9.6-12.3); MONO # 0.6 10*3/uL (0.1-1.0); MONO % 8.5 % (3.0-9.0); NEUT # 4.9 10*3/uL (2.3-7.9); NEUT % 66.7 % (47.0-73.0); PLATELET COUNT AUTOMATED 321 10*3/uL (130-400); RED BLOOD COUNT 4.76 10*6/uL (4.10-5.10); RED CELL DISTRI WIDTH 12.7 % (0-14.5); WHITE BLOOD COUNT 7.4 10*3/uL (4.8-10.8)
[2022-08-05 10:30] LABS: BUN 10 mg/dl (7-24); CHLORIDE 108 mmol/L (98-107); POTASSIUM 4.2 mmol/L (3.5-5.1); SGOT/AST 19 IU/L (3-35); SGPT/ALT 39 U/L (12-78); SODIUM 140 mmol/L (136-145)
[2022-08-05 10:34] LABS: ALKALINE PHOSPHATASE 67 U/L (45-117); CHOLESTEROL 213 mg/dL (<200); FREE T4 1.16 ng/dl (0.76-1.46); LDL CHOLESTEROL 143 mg/dL (9-159); TOTAL PROTEIN 7.6 gm/dL (6.4-8.2); TRIGLYCERIDES 150 mg/dl (<150)
[2022-08-05 11:18] LABS: VITAMIN D, 25-HYDROXY 28.8 ng/mL (30-100)
== END | disposition home or self-care (01) ==
LOC: LAB 09:18
PROVIDERS: ATTEND Internal Medicine
DX: E11.65 Type 2 diabetes mellitus with hyperglycemia (principal); E55.9 Vitamin D deficiency, unspecified; D51.9 Vitamin B12 deficiency anemia, unspecified; E78.2 Mixed hyperlipidemia; E11.40 Type 2 diabetes mellitus with diabetic neuropathy, unspecified; Z13.0 Encounter for screening for diseases of the blood and blood-forming organs and certain disorders involving the immune mechanism; Z13.1 Encounter for screening for diabetes mellitus; Z13.21 Encounter for screening for nutritional disorder; Z13.220 Encounter for screening for lipoid disorders; Z13.228 Encounter for screening for other metabolic disorders; Z13.29 Encounter for screening for other suspected endocrine disorder; Z13.6 Encounter for screening for cardiovascular disorders; Z13.89 Encounter for screening for other disorder; Z13.9 Encounter for screening, unspecified

== ENCOUNTER 2022-11-07 16:33 | Observation (INO) | payer MEDICARE ==
[~2022-11-07] VITALS: Wt 78.0 kg
[2022-11-07 16:41] VITALS: BP 184/65
[2022-11-07 17:09] VITALS: BP 137/53
[2022-11-07 17:16] LABS: BASO # 0.1 10*3/uL (0.0-0.1); BASO % 0.8 % (0.0-1.0); EOS # 0.2 10*3/uL (0.0-0.4); EOS % 2.4 % (1.0-4.0); LYMPH # 2.9 10*3/uL (1.3-4.4); LYMPH % 35.7 % (27.0-41.0); MEAN CELL VOLUME 82.8 fl (81.0-99.0); MEAN CORPUSCULAR HGB 27.8 pg (27.0-31.0); MEAN CORPUSCULAR HGB CONC 33.6 g/dl (33.0-37.0); MONO # 0.7 10*3/uL (0.1-1.0); MONO % 8.6 % (3.0-9.0); NEUT # 4.2 10*3/uL (2.3-7.9); PLATELET COUNT AUTOMATED 259 10*3/uL (130-400); RED BLOOD COUNT 4.71 10*6/uL (4.10-5.10); RED CELL DISTRI WIDTH 12.4 % (0-14.5)
[2022-11-07 17:30] LABS: ALKALINE PHOSPHATASE 70 U/L (46-116); BUN 6 mg/dl (9-23); CHLORIDE 104 mmol/L (98-107); POTASSIUM 3.4 mmol/L (3.4-5.1); SGPT/ALT 47 U/L (10-49); TOTAL PROTEIN 7.1 gm/dL (6.0-8.0)
[2022-11-07 17:47] LABS: BILIRUBIN Negative (Negative); BLOOD Negative (Negative); CLARITY Clear (Clear); COLOR Yellow (Yellow); GLUCOSE Negative (Negative); KETONE Negative (Negative); LEUKO ESTERASE Negative (Negative); NITRITE Negative (Negative); PH 5.5 (4.5-8.0); SPECIFIC GRAVITY <= 1.005 (1.001-1.030); UROBILINOGEN 0.2 E.U./dl (0.0-1.0)
[2022-11-07 19:14] VITALS: BP 133/64
[2022-11-07] MEDS ORDERED: DEPAKOTE500 M2 PO (20:01)
[2022-11-07 20:50] VITALS: BP 124/56
[2022-11-07 22:02] VITALS: BP 129/63
[2022-11-08 06:47] VITALS: BP 124/64
[2022-11-08 09:48] VITALS: BP 112/61
[2022-11-08] MEDS ORDERED: DIVALPROEX SOD250 MG PO (14:35)
== END 2022-11-08 14:47 | disposition home or self-care (01) ==
LOC: ED 16:33 → EDHOLD 19:30 → 4E 11-08 13:35 → EDHOLD 11-08 14:36
PROVIDERS: Nurse Practitioner Family; ADMIT Internal Medicine; ATTEND Internal Medicine
DX: G44.201 Tension-type headache, unspecified, intractable (principal); R41.82 Altered mental status, unspecified; Z79.899 Other long term (current) drug therapy; Z88.1 Allergy status to other antibiotic agents; Z88.8 Allergy status to other drugs, medicaments and biological substances; Z90.49 Acquired absence of other specified parts of digestive tract

== ENCOUNTER → 2023-02-01 | Outpatient (CLI) | payer MEDICARE ==
[~2023-02-01] MED LIST changes: +DEPAKOTE500 M2 PO; +DIVALPROEX SOD250 MG PO
== END | disposition home or self-care (01) ==
LOC: MAMMO 01-21 08:30
PROVIDERS: ATTEND Internal Medicine
DX: Z12.31 Encounter for screening mammogram for malignant neoplasm of breast (principal); R92.1 Mammographic calcification found on diagnostic imaging of breast

== ENCOUNTER 2023-03-25 13:01 | Emergency (ER) | payer MEDICARE ==
[~2023-03-25] VITALS: Ht 157.4 cm; Wt 70.8 kg
[2023-03-25 13:21] VITALS: BP 150/75
[2023-03-25] MEDS ORDERED: TYLENOL325 M1 PO (14:58)
== END 2023-03-25 15:12 | disposition home or self-care (01) ==
LOC: ED 13:01
DX: S63.501A Unspecified sprain of right wrist, initial encounter (principal); Z91.018 Allergy to other foods; Z88.1 Allergy status to other antibiotic agents; Z88.8 Allergy status to other drugs, medicaments and biological substances; Z79.899 Other long term (current) drug therapy; Z90.49 Acquired absence of other specified parts of digestive tract; Z87.891 Personal history of nicotine dependence; Z98.890 Other specified postprocedural states; W19.XXXA Unspecified fall, initial encounter; Y93.89 Activity, other specified; Y92.89 Other specified places as the place of occurrence of the external cause; Y99.8 Other external cause status

== ENCOUNTER 2023-04-19 13:31 | Emergency (ER) | payer MEDICARE ==
[~2023-04-19] VITALS: Ht 157.4 cm; Wt 72.6 kg
[~2023-04-19 13:31] MED LIST changes: +TYLENOL325 M1 PO
[2023-04-19 13:32] VITALS: BP 142/88
[2023-04-19] MEDS ORDERED: CEPHALEXIN500 M1 PO (14:04)
== END 2023-04-19 14:10 | disposition home or self-care (01) ==
LOC: ED 13:31
DX: S61.210A Laceration without foreign body of right index finger without damage to nail, initial encounter (principal); S61.011A Laceration without foreign body of right thumb without damage to nail, initial encounter; I10 Essential (primary) hypertension; E11.9 Type 2 diabetes mellitus without complications; D64.9 Anemia, unspecified; F41.9 Anxiety disorder, unspecified; F32.A Depression, unspecified; K21.9 Gastro-esophageal reflux disease without esophagitis; Z91.018 Allergy to other foods; Z88.8 Allergy status to other drugs, medicaments and biological substances; Z90.49 Acquired absence of other specified parts of digestive tract; Z98.890 Other specified postprocedural states; Z87.891 Personal history of nicotine dependence; W26.0XXA Contact with knife, initial encounter; Y93.89 Activity, other specified; Y92.410 Unspecified street and highway as the place of occurrence of the external cause; Y99.8 Other external cause status

== ENCOUNTER 2023-08-07 21:13 | Emergency (ER) | payer MEDICARE ==
[~2023-08-07] VITALS: Ht 157.4 cm; Wt 72.6 kg
[~2023-08-07 21:13] MED LIST changes: +CEPHALEXIN500 M1 PO
[2023-08-07 21:14] VITALS: BP 169/74
[2023-08-07 22:10] LABS: BASO % 0.5 % (0.0-1.0); EOS # 0.1 10*3/uL (0.0-0.4); EOS % 1.5 % (1.0-4.0); HEMATOCRIT 40.5 % (37.0-47.0); LYMPH # 1.8 10*3/uL (1.3-4.4); LYMPH % 23.2 % (27.0-41.0); MEAN CELL VOLUME 84.7 fl (81.0-99.0); MEAN CORPUSCULAR HGB 28.2 pg (27.0-31.0); MEAN CORPUSCULAR HGB CONC 33.3 g/dl (33.0-37.0); MEAN PLATELET VOLUME 9.2 fl (9.6-12.3); MONO # 0.9 10*3/uL (0.1-1.0); MONO % 10.7 % (3.0-9.0); NEUT # 5.1 10*3/uL (2.3-7.9); NEUT % 63.7 % (47.0-73.0); PLATELET COUNT AUTOMATED 294 10*3/uL (130-400); RED BLOOD COUNT 4.78 10*6/uL (4.10-5.10); RED CELL DISTRI WIDTH 12.6 % (0-14.5); WHITE BLOOD COUNT 7.9 10*3/uL (4.8-10.8)
[2023-08-07 22:31] LABS: ACT PARTIAL THROMBO TIME 27.2 SECONDS (20.0-32.1)
[2023-08-07 22:32] LABS: ALKALINE PHOSPHATASE 79 U/L (46-116); BUN 10 mg/dl (9-23); CHLORIDE 108 mmol/L (98-107); ETHYL ALCOHOL < 3.0 mg/dl (<3); LIPASE 68 U/L (12-53); POTASSIUM 3.3 mmol/L (3.4-5.1); SGPT/ALT 17 U/L (10-49); TOTAL PROTEIN 7.3 gm/dL (6.0-8.0)
[2023-08-07 22:38] LABS: BILIRUBIN Negative (Negative); BLOOD Negative (Negative); CLARITY Clear (Clear); COLOR Yellow (Yellow); GLUCOSE 2+ (Negative); KETONE Negative (Negative); LEUKO ESTERASE Negative (Negative); NITRITE Negative (Negative)
[2023-08-07 22:45] LABS: URINE AMPHETAMINES Negative (1000ng/ml); URINE BARBITURATES Negative (200ng/ml); URINE BENZODIAZEPINES Negative (200ng/ml); URINE CANNABINOIDS (THC) Negative (50ng/ml); URINE COCAINE Negative (300ng/ml); URINE METHADONE Negative (300ng/ml); URINE OPIATES Negative (300ng/ml); URINE PHENCYCLIDINE Negative (25ng/ml)
[2023-08-07 22:56] LABS: RBC 0-2 rbc/hpf (0-2)
[2023-08-08] MEDS ORDERED: CYCLOBENZAPRINE10 MG PO (00:31)
== END 2023-08-08 00:38 | disposition home or self-care (01) ==
LOC: ED 21:13
PROVIDERS: Internal Medicine
DX: M62.830 Muscle spasm of back (principal); M54.50 Low back pain, unspecified; M25.552 Pain in left hip; Z91.018 Allergy to other foods; Z88.1 Allergy status to other antibiotic agents; Z88.8 Allergy status to other drugs, medicaments and biological substances; Z79.899 Other long term (current) drug therapy; Z79.2 Long term (current) use of antibiotics; Z90.49 Acquired absence of other specified parts of digestive tract; Z98.890 Other specified postprocedural states; Z87.891 Personal history of nicotine dependence

== ENCOUNTER → 2023-08-13 | Outpatient (CLI) | payer MEDICARE ==
[~2023-08-13] MED LIST changes: +CYCLOBENZAPRINE10 MG PO
[2023-08-13 09:01] LABS: BASO # 0.1 10*3/uL (0.0-0.1); BASO % 0.8 % (0.0-1.0); EOS # 0.1 10*3/uL (0.0-0.4); EOS % 1.6 % (1.0-4.0); HEMATOCRIT 40.4 % (37.0-47.0); LYMPH # 1.9 10*3/uL (1.3-4.4); LYMPH % 30.4 % (27.0-41.0); MEAN CORPUSCULAR HGB 28.3 pg (27.0-31.0); MEAN CORPUSCULAR HGB CONC 32.9 g/dl (33.0-37.0); MEAN PLATELET VOLUME 8.9 fl (9.6-12.3); MONO # 0.5 10*3/uL (0.1-1.0); MONO % 8.8 % (3.0-9.0); NEUT # 3.6 10*3/uL (2.3-7.9); NEUT % 58.1 % (47.0-73.0); PLATELET COUNT AUTOMATED 329 10*3/uL (130-400); RED CELL DISTRI WIDTH 12.5 % (0-14.5); WHITE BLOOD COUNT 6.2 10*3/uL (4.8-10.8)
[2023-08-13 10:12] LABS: VITAMIN D, 25-HYDROXY 29.3 ng/mL (30-100)
[2023-08-13 10:18] LABS: ALKALINE PHOSPHATASE 66 U/L (46-116); BUN 11 mg/dl (9-23); CHLORIDE 106 mmol/L (98-107); CHOLESTEROL 199 mg/dL (<200); FREE T4 1.18 ng/dl (0.89-1.76); LDL CHOLESTEROL 125 mg/dL (9-159); POTASSIUM 3.9 mmol/L (3.4-5.1); SGPT/ALT 15 U/L (10-49); TOTAL PROTEIN 7.3 gm/dL (6.0-8.0); TRIGLYCERIDES 144 mg/dl (<150)
== END | disposition home or self-care (01) ==
LOC: LAB 08:17
PROVIDERS: ATTEND Internal Medicine
DX: Z13.0 Encounter for screening for diseases of the blood and blood-forming organs and certain disorders involving the immune mechanism (principal); Z13.1 Encounter for screening for diabetes mellitus; Z13.21 Encounter for screening for nutritional disorder; Z13.220 Encounter for screening for lipoid disorders; Z13.29 Encounter for screening for other suspected endocrine disorder; Z13.6 Encounter for screening for cardiovascular disorders; Z13.89 Encounter for screening for other disorder; Z13.9 Encounter for screening, unspecified; F33.0 Major depressive disorder, recurrent, mild; E11.65 Type 2 diabetes mellitus with hyperglycemia; F41.1 Generalized anxiety disorder; F33.1 Major depressive disorder, recurrent, moderate; J44.1 Chronic obstructive pulmonary disease with (acute) exacerbation; E55.9 Vitamin D deficiency, unspecified

== ENCOUNTER → 2023-08-17 | Outpatient (CLI) | payer MEDICARE | END | disposition home or self-care (01) | LOC: US 11:25 | PROVIDERS: ATTEND Internal Medicine | DX: R23.0 Cyanosis (principal); M79.605 Pain in left leg; R20.2 Paresthesia of skin; R20.8 Other disturbances of skin sensation; Z87.891 Personal history of nicotine dependence; R09.89 Other specified symptoms and signs involving the circulatory and respiratory systems ==

== ENCOUNTER 2023-10-04 08:12 | Observation (INO) | payer MEDICARE ==
[~2023-10-04] VITALS: Ht 157.4 cm; Wt 79.9 kg
[2023-10-04 08:13] VITALS: BP 189/79
[2023-10-04 08:59] LABS: BASO # 0.1 10*3/uL (0.0-0.1); EOS # 0.2 10*3/uL (0.0-0.4); EOS % 2.7 % (1.0-4.0); HEMATOCRIT 40.3 % (37.0-47.0); LYMPH # 1.5 10*3/uL (1.3-4.4); LYMPH % 25.5 % (27.0-41.0); MEAN CORPUSCULAR HGB 28.8 pg (27.0-31.0); MEAN CORPUSCULAR HGB CONC 34.2 g/dl (33.0-37.0); MEAN PLATELET VOLUME 8.9 fl (9.6-12.3); MONO # 0.6 10*3/uL (0.1-1.0); MONO % 9.4 % (3.0-9.0); NEUT # 3.6 10*3/uL (2.3-7.9); NEUT % 60.7 % (47.0-73.0); PLATELET COUNT AUTOMATED 288 10*3/uL (130-400); RED CELL DISTRI WIDTH 12.7 % (0-14.5)
[2023-10-04 09:10] LABS: ACT PARTIAL THROMBO TIME 27.3 SECONDS (20.0-32.1)
[2023-10-04 09:24] LABS: ALKALINE PHOSPHATASE 75 U/L (46-116); BUN 8 mg/dl (9-23); CHLORIDE 106 mmol/L (98-107); CPK 82 U/L (34-171); POTASSIUM 3.9 mmol/L (3.4-5.1); SGPT/ALT 22 U/L (5-49); TOTAL PROTEIN 7.4 gm/dL (6.0-8.0)
[2023-10-04 10:10] LABS: BILIRUBIN Negative (Negative); BLOOD Negative (Negative); CLARITY Clear (Clear); COLOR Yellow (Yellow); GLUCOSE Negative (Negative); KETONE Negative (Negative); LEUKO ESTERASE Negative (Negative); NITRITE Negative (Negative); UROBILINOGEN 0.2 E.U./dl (0.0-1.0)
[2023-10-04 10:18] LABS: BACTERIA TRACE; RBC 0-2 rbc/hpf (0-2)
[2023-10-04 10:56] VITALS: BP 142/73
[2023-10-04 14:30] VITALS: BP 131/77
[2023-10-04] MEDS ORDERED: ECOTRIN81 M1 PO (14:40)
[2023-10-04 14:50] VITALS: BP 131/77
[2023-10-04 16:00] VITALS: BP 136/81
[2023-10-04 20:00] VITALS: BP 98/68
[2023-10-05] VITALS: BP 116/58
[2023-10-05 06:06] LABS: BASO # 0.1 10*3/uL (0.0-0.1); BASO % 0.8 % (0.0-1.0); EOS # 0.2 10*3/uL (0.0-0.4); EOS % 2.5 % (1.0-4.0); HEMATOCRIT 39.5 % (37.0-47.0); LYMPH # 1.4 10*3/uL (1.3-4.4); LYMPH % 23.8 % (27.0-41.0); MEAN CELL VOLUME 84.4 fl (81.0-99.0); MEAN CORPUSCULAR HGB 28.4 pg (27.0-31.0); MEAN CORPUSCULAR HGB CONC 33.7 g/dl (33.0-37.0); MEAN PLATELET VOLUME 9.2 fl (9.6-12.3); MONO # 0.6 10*3/uL (0.1-1.0); MONO % 9.9 % (3.0-9.0); NEUT # 3.7 10*3/uL (2.3-7.9); NEUT % 62.7 % (47.0-73.0); PLATELET COUNT AUTOMATED 289 10*3/uL (130-400); RED BLOOD COUNT 4.68 10*6/uL (4.10-5.10); RED CELL DISTRI WIDTH 12.8 % (0-14.5)
[2023-10-05 06:30] LABS: BUN 8 mg/dl (9-23); CHLORIDE 106 mmol/L (98-107)
[2023-10-05 08:00] VITALS: BP 138/83
[2023-10-05 12:00] VITALS: BP 139/63
[2023-10-05 16:00] VITALS: BP 125/72
[2023-10-05 20:00] VITALS: BP 136/65
[2023-10-06] VITALS: BP 134/62
[2023-10-06 08:00] VITALS: BP 124/62
[2023-10-06] MEDS ORDERED: CLOPIDOGREL75 MG PO (10:13)
[2023-10-06] MEDS ORDERED: ACETAMINOPHEN500 M4 PO (10:13)
[2023-10-06 11:45] VITALS: BP 127/71
== END 2023-10-06 12:01 | disposition home or self-care (01) ==
LOC: ED 08:12 → EDHOLD 11:04 → 4E 11:04 → EDHOLD 12:38 → 4E 14:29
PROVIDERS: Family Medicine; ADMIT Internal Medicine; ATTEND Internal Medicine
DX: G45.9 Transient cerebral ischemic attack, unspecified (principal); M79.7 Fibromyalgia; F41.1 Generalized anxiety disorder; F33.9 Major depressive disorder, recurrent, unspecified; E03.9 Hypothyroidism, unspecified; H53.8 Other visual disturbances; F41.9 Anxiety disorder, unspecified; E78.5 Hyperlipidemia, unspecified; I10 Essential (primary) hypertension; E11.40 Type 2 diabetes mellitus with diabetic neuropathy, unspecified; Z88.1 Allergy status to other antibiotic agents; Z88.8 Allergy status to other drugs, medicaments and biological substances; Z79.899 Other long term (current) drug therapy; Z79.84 Long term (current) use of oral hypoglycemic drugs; Z90.49 Acquired absence of other specified parts of digestive tract; Z98.890 Other specified postprocedural states; Z87.891 Personal history of nicotine dependence

== ENCOUNTER 2023-10-21 18:59 | Emergency (ER) | payer MEDICARE ==
[~2023-10-21] VITALS: Ht 157.4 cm; Wt 74.4 kg
[~2023-10-21 18:59] MED LIST changes: +ACETAMINOPHEN500 M4 PO; +CLOPIDOGREL75 MG PO; +ECOTRIN81 M1 PO
[2023-10-21 19:43] VITALS: BP 121/79
[2023-10-21 20:50] LABS: BASO % 0.4 % (0.0-1.0); EOS % 0.6 % (1.0-4.0); HEMATOCRIT 41.9 % (37.0-47.0); LYMPH # 0.6 10*3/uL (1.3-4.4); LYMPH % 9.1 % (27.0-41.0); MEAN CORPUSCULAR HGB 27.9 pg (27.0-31.0); MEAN CORPUSCULAR HGB CONC 33.2 g/dl (33.0-37.0); MONO # 0.9 10*3/uL (0.1-1.0); MONO % 12.5 % (3.0-9.0); NEUT # 5.4 10*3/uL (2.3-7.9); NEUT % 77.1 % (47.0-73.0); PLATELET COUNT AUTOMATED 236 10*3/uL (130-400); RED BLOOD COUNT 4.99 10*6/uL (4.10-5.10); WHITE BLOOD COUNT 6.9 10*3/uL (4.8-10.8)
[2023-10-21 21:18] LABS: ALKALINE PHOSPHATASE 73 U/L (46-116); BUN 8 mg/dl (9-23); CHLORIDE 103 mmol/L (98-107); POTASSIUM 3.9 mmol/L (3.4-5.1); SGPT/ALT 21 U/L (5-49)
[2023-10-21] MEDS ORDERED: BENZONATATE100 M1 PO (22:04)
== END 2023-10-21 22:15 | disposition home or self-care (01) ==
LOC: ED 18:59
PROVIDERS: Nurse Practitioner Family
DX: J10.1 Influenza due to other identified influenza virus with other respiratory manifestations (principal); E11.9 Type 2 diabetes mellitus without complications; E03.9 Hypothyroidism, unspecified; I10 Essential (primary) hypertension; D64.9 Anemia, unspecified; F41.9 Anxiety disorder, unspecified; F32.A Depression, unspecified; K21.9 Gastro-esophageal reflux disease without esophagitis; Z91.018 Allergy to other foods; Z88.1 Allergy status to other antibiotic agents; Z88.8 Allergy status to other drugs, medicaments and biological substances; Z90.49 Acquired absence of other specified parts of digestive tract; Z98.890 Other specified postprocedural states; Z98.51 Tubal ligation status; Z87.891 Personal history of nicotine dependence; Z20.822 Contact with and (suspected) exposure to COVID-19

== ENCOUNTER → 2024-02-14 | Outpatient (CLI) | payer OTHER ==
[~2024-02-14] MED LIST changes: +BENZONATATE100 M1 PO
== END | disposition home or self-care (01) ==
LOC: RAD 02:23
PROVIDERS: ATTEND Internal Medicine
DX: M81.0 Age-related osteoporosis without current pathological fracture (principal); Z78.0 Asymptomatic menopausal state

== ENCOUNTER → 2024-02-16 | Outpatient (CLI) | payer OTHER ==
[2024-02-16 09:11] LABS: BASO # 0.1 10*3/uL (0.0-0.1); BASO % 0.8 % (0.0-1.0); EOS # 0.1 10*3/uL (0.0-0.4); EOS % 1.5 % (1.0-4.0); HEMATOCRIT 42.1 % (37.0-47.0); LYMPH # 1.3 10*3/uL (1.3-4.4); LYMPH % 21.9 % (27.0-41.0); MEAN CELL VOLUME 85.1 fl (81.0-99.0); MEAN CORPUSCULAR HGB 27.3 pg (27.0-31.0); MEAN CORPUSCULAR HGB CONC 32.1 g/dl (33.0-37.0); MONO # 0.6 10*3/uL (0.1-1.0); MONO % 10.2 % (3.0-9.0); NEUT # 3.8 10*3/uL (2.3-7.9); NEUT % 64.8 % (47.0-73.0); PLATELET COUNT AUTOMATED 284 10*3/uL (130-400); RED BLOOD COUNT 4.95 10*6/uL (4.10-5.10); RED CELL DISTRI WIDTH 12.6 % (0-14.5); WHITE BLOOD COUNT 5.9 10*3/uL (4.8-10.8)
[2024-02-16 09:58] LABS: ALKALINE PHOSPHATASE 75 U/L (46-116); BUN 9 mg/dl (9-23); CHLORIDE 104 mmol/L (98-107); CHOLESTEROL 210 mg/dL (<200); CPK 105 U/L (34-171); FREE T4 1.29 ng/dl (0.89-1.76); LDL CHOLESTEROL 134 mg/dL (9-159); POTASSIUM 3.9 mmol/L (3.4-5.1); SGPT/ALT 29 U/L (5-49); TOTAL PROTEIN 7.5 gm/dL (6.0-8.0); TRIGLYCERIDES 153 mg/dl (<150)
[2024-02-16 10:00] LABS: VITAMIN D, 25-HYDROXY 33.9 ng/mL (30-100)
== END | disposition home or self-care (01) ==
LOC: LAB 08:51
PROVIDERS: ATTEND Internal Medicine
DX: Z13.21 Encounter for screening for nutritional disorder (principal); Z13.0 Encounter for screening for diseases of the blood and blood-forming organs and certain disorders involving the immune mechanism; Z13.1 Encounter for screening for diabetes mellitus; Z13.220 Encounter for screening for lipoid disorders; Z13.228 Encounter for screening for other metabolic disorders; Z13.29 Encounter for screening for other suspected endocrine disorder; Z13.6 Encounter for screening for cardiovascular disorders; Z13.89 Encounter for screening for other disorder; Z13.9 Encounter for screening, unspecified; R55 Syncope and collapse; J44.1 Chronic obstructive pulmonary disease with (acute) exacerbation; F33.0 Major depressive disorder, recurrent, mild

== ENCOUNTER → 2024-05-25 | Outpatient (CLI) | payer OTHER | END | disposition home or self-care (01) | LOC: MAMMO 10:12 | PROVIDERS: ATTEND Nurse Practitioner Women's Health | DX: Z12.31 Encounter for screening mammogram for malignant neoplasm of breast (principal) ==

== ENCOUNTER 2024-10-16 09:30 | Emergency (ER) | payer MEDICARE ==
[~2024-10-16] VITALS: Ht 157.4 cm; Wt 59.9 kg
[2024-10-16 09:41] VITALS: BP 135/75
[2024-10-16] MEDS ORDERED: NEURONTIN300 MG PO (09:47)
[2024-10-16] MEDS ORDERED: MOUNJARO5 MG/0.51 SQ (09:48)
[2024-10-16] MEDS ORDERED: COLACE100 MG PO (09:49)
[2024-10-16] MEDS ORDERED: OYSTER SHELL 51 EAC5 PO (09:49)
[2024-10-16] MEDS ORDERED: ALENDRONATE SOD70 M1 PO (09:49)
[2024-10-16 10:52] LABS: BASO % 0.5 % (0.0-1.0); EOS # 0.1 10*3/uL (0.0-0.4); EOS % 1.4 % (1.0-4.0); HEMATOCRIT 39.4 % (37.0-47.0); MEAN CELL VOLUME 85.3 fl (81.0-99.0); MEAN CORPUSCULAR HGB 28.1 pg (27.0-31.0); MEAN PLATELET VOLUME 9.1 fl (9.6-12.3); MONO # 0.6 10*3/uL (0.1-1.0); NEUT # 4.1 10*3/uL (2.3-7.9); NEUT % 73.6 % (47.0-73.0); PLATELET COUNT AUTOMATED 230 10*3/uL (130-400); RED BLOOD COUNT 4.62 10*6/uL (4.10-5.10); RED CELL DISTRI WIDTH 12.5 % (0-14.5); WHITE BLOOD COUNT 5.6 10*3/uL (4.8-10.8)
[2024-10-16 11:10] LABS: BUN 11 mg/dl (9-23); CHLORIDE 107 mmol/L (98-107); POTASSIUM 3.7 mmol/L (3.4-5.1)
[2024-10-16] MEDS ORDERED: ZITHROMAX250 MG PO (11:27)
[2024-10-16] MEDS ORDERED: AZITHROMYCIN 250 MG TAB PO ONE (11:30)
== END 2024-10-16 11:36 | disposition home or self-care (01) ==
LOC: ED 09:30
PROVIDERS: Nurse Practitioner Family
DX: J01.90 Acute sinusitis, unspecified (principal); Z20.822 Contact with and (suspected) exposure to COVID-19; Z91.018 Allergy to other foods; Z88.1 Allergy status to other antibiotic agents; Z88.8 Allergy status to other drugs, medicaments and biological substances; Z79.899 Other long term (current) drug therapy; Z90.49 Acquired absence of other specified parts of digestive tract; Z98.890 Other specified postprocedural states; Z87.891 Personal history of nicotine dependence

== ENCOUNTER → 2025-01-03 | Outpatient (CLI) | payer MEDICARE ==
[~2025-01-03] MED LIST changes: +ALENDRONATE SOD70 M1 PO; +COLACE100 MG PO; +MOUNJARO5 MG/0.51 SQ; +NEURONTIN300 MG PO; +OYSTER SHELL 51 EAC5 PO
[2025-01-03 12:28] LABS: BASO # 0.1 10*3/uL (0.0-0.1); BASO % 0.9 % (0.0-1.0); EOS # 0.1 10*3/uL (0.0-0.4); EOS % 2.4 % (1.0-4.0); HEMATOCRIT 40.9 % (37.0-47.0); MEAN CORPUSCULAR HGB 28.3 pg (27.0-31.0); MEAN CORPUSCULAR HGB CONC 32.5 g/dl (33.0-37.0); MEAN PLATELET VOLUME 8.8 fl (9.6-12.3); MONO # 0.5 10*3/uL (0.1-1.0); MONO % 9.5 % (3.0-9.0); NEUT # 3.3 10*3/uL (2.3-7.9); NEUT % 61.6 % (47.0-73.0); PLATELET COUNT AUTOMATED 284 10*3/uL (130-400); RED CELL DISTRI WIDTH 12.7 % (0-14.5); WHITE BLOOD COUNT 5.4 10*3/uL (4.8-10.8)
[2025-01-03 13:02] LABS: ALKALINE PHOSPHATASE 53 U/L (46-116); BUN 13 mg/dl (9-23); CHLORIDE 102 mmol/L (98-107); CHOLESTEROL 210 mg/dL (<200); CPK 124 U/L (34-171); FREE T4 1.24 ng/dl (0.89-1.76); LDL CHOLESTEROL 143 mg/dL (9-159); POTASSIUM 4.3 mmol/L (3.4-5.1); SGPT/ALT 15 U/L (5-49); TOTAL PROTEIN 7.4 gm/dL (6.0-8.0); TRIGLYCERIDES 98 mg/dl (<150)
[2025-01-03 13:03] LABS: VITAMIN D, 25-HYDROXY 45.1 ng/mL (30-100)
== END | disposition home or self-care (01) ==
LOC: LAB 11:59
PROVIDERS: ATTEND Internal Medicine
DX: I10 Essential (primary) hypertension (principal); E11.65 Type 2 diabetes mellitus with hyperglycemia; E78.2 Mixed hyperlipidemia; E03.9 Hypothyroidism, unspecified; E55.9 Vitamin D deficiency, unspecified; D51.9 Vitamin B12 deficiency anemia, unspecified; F17.210 Nicotine dependence, cigarettes, uncomplicated; R53.83 Other fatigue; R74.8 Abnormal levels of other serum enzymes

== ENCOUNTER 2025-08-17 13:23 | Emergency (ER) | payer MEDICARE ==
[~2025-08-17] VITALS: Ht 157.4 cm; Wt 68.0 kg
[2025-08-17 13:32] VITALS: BP 118/83
[2025-08-17] MEDS ORDERED: Ondansetron Hydrochloride 4 MG/2 ML VIAL IV ONE (13:40)
[2025-08-17] MEDS ORDERED: fentaNYL CITRATE/PF 50 MCG/ML SYRINGE IV ONE (13:40)
[2025-08-17] MEDS ORDERED: FAMOTIDINE 20 MG in SYRINGE INFUSION 8 ML IV ONE (13:50)
[2025-08-17 14:01] LABS: BASO # 0.1 10*3/uL (0.0-0.1); BASO % 1.0 % (0.0-1.0); EOS # 0.1 10*3/uL (0.0-0.4); EOS % 1.3 % (1.0-4.0); MEAN CELL VOLUME 85.2 fl (81.0-99.0); MEAN CORPUSCULAR HGB 28.9 pg (27.0-31.0); MEAN PLATELET VOLUME 9.0 fl (9.6-12.3); MONO # 0.5 10*3/uL (0.1-1.0); MONO % 7.9 % (3.0-9.0); NEUT # 4.2 10*3/uL (2.3-7.9); NEUT % 65.8 % (47.0-73.0); NUCLEATED RED BLOOD CELL 0.0 % (0.0-0.0); NUCLEATED RED BLOOD CELL 0.0 10*3/uL (0.0-0.0); PLATELET COUNT AUTOMATED 279 10*3/uL (130-400); RED CELL DISTRI WIDTH 12.3 % (0-14.5)
[2025-08-17 14:14] LABS: BUN 6 mg/dl (9-23)
[2025-08-17] MEDS ORDERED: FAMOTIDINE 20 MG/2 ML VIAL ONE (14:15)
[2025-08-17] MEDS ORDERED: VISTARIL25 MG PO (14:52)
== END 2025-08-17 14:59 | disposition home or self-care (01) ==
LOC: ED 13:23
PROVIDERS: Emergency Medicine
DX: R07.89 Other chest pain (principal); I10 Essential (primary) hypertension; E11.9 Type 2 diabetes mellitus without complications; E03.9 Hypothyroidism, unspecified; F41.9 Anxiety disorder, unspecified; F32.A Depression, unspecified; Z87.891 Personal history of nicotine dependence; Z90.49 Acquired absence of other specified parts of digestive tract; Z98.890 Other specified postprocedural states; Z88.1 Allergy status to other antibiotic agents; Z91.018 Allergy to other foods

== ENCOUNTER → 2025-08-23 | Outpatient (CLI) | payer MEDICARE ==
[~2025-08-23] MED LIST changes: +VISTARIL25 MG PO
== END | disposition home or self-care (01) ==
LOC: US 13:50
PROVIDERS: ATTEND Internal Medicine
DX: I70.213 Atherosclerosis of native arteries of extremities with intermittent claudication, bilateral legs (principal); R09.89 Other specified symptoms and signs involving the circulatory and respiratory systems; R20.8 Other disturbances of skin sensation; I99.9 Unspecified disorder of circulatory system

== ENCOUNTER 2025-09-11 06:36 | Emergency (ER) | payer MEDICARE ==
[~2025-09-11] VITALS: Ht 157.4 cm; Wt 64.9 kg
[2025-09-11 06:45] VITALS: BP 138/64
[2025-09-11] MEDS ORDERED: ACETAMINOPHEN 325 MG TAB PO ONE (07:15)
[2025-09-11] MEDS ORDERED: GUAIFENESIN AC473 M1 PO (08:50)
== END 2025-09-11 08:55 | disposition home or self-care (01) ==
LOC: ED 06:36
DX: J20.8 Acute bronchitis due to other specified organisms (principal); J06.9 Acute upper respiratory infection, unspecified; I10 Essential (primary) hypertension; E11.9 Type 2 diabetes mellitus without complications; K21.9 Gastro-esophageal reflux disease without esophagitis; F41.9 Anxiety disorder, unspecified; Z87.891 Personal history of nicotine dependence; Z90.49 Acquired absence of other specified parts of digestive tract; Z91.018 Allergy to other foods; Z88.1 Allergy status to other antibiotic agents; Z88.8 Allergy status to other drugs, medicaments and biological substances; Z20.822 Contact with and (suspected) exposure to COVID-19